=== PATIENT | female | born 2005 | race Caucasian/White ===

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

== ENCOUNTER 2023-11-08 14:42 | Outpatient (REF) | payer OTHER, SELFPAY ==
[2023-11-10 13:35] LABS: Chlamydia Result Negative (Negative); GC Result Negative (Negative)
[2023-11-12 09:22] LABS: Specimen Description URINE
== END 2023-11-08 14:43 | disposition home or self-care (01) ==
LOC: LBN 14:42
PROVIDERS: PCP Nurse Practitioner Pediatrics; Referring Provider Nurse Practitioner Pediatrics; Visit Provider Nurse Practitioner Pediatrics
DX: Z11.3 Encounter for screening for infections with a predominantly sexual mode of transmission (principal)
CPT/HCPCS: 87491; 87591

== ENCOUNTER 2023-11-08 16:52 | Outpatient (CLI) | payer OTHER, SELFPAY ==
[2023-11-08 15:04] LABS: Abs Immature Grans 0.01 10^3/uL (0.0-0.06); Absolute Basophil Count 0.05 10^3/uL (0.0-0.2); Absolute Eosinophil Count 0.22 10^3/uL (0.0-0.7); Absolute Lymphocyte Count 1.76 10^3/uL (1.2-3.4); Absolute Monocyte Count 0.26 10^3/uL (0.1-0.8); Absolute Neutrophil Count 2.75 10^3/uL (1.2-6.7); Eosinophils % 4.4 %; HGB 13.5 g/dL (11.2-15.7); Immature Grans % 0.2 %; Lymphocytes % 34.9 %; MCH 29.2 pg (27.0-33.0); MCHC 33.8 % (32.0-36.0); MCV 86 fL (80-95); MPV 9.6 fL (8.0-11.0); Monocytes % 5.1 %; Neutrophils % 54.4 %; Platelet Count 197 10^3/uL (130-400); RBC 4.63 10^6/uL (3.93-5.22); RDW 12.3 % (11.7-14.6); RDW-SD 38.9 fL; WBC 5.05 10^3/uL (4.4-10.8)
[2023-11-08 15:18] LABS: INR 1.2 (0.9-1.1); Prothrombin Time 12.3 sec (9.1-11.1)
[2023-11-08 16:17] LABS: ALT 29 U/L (14-59); AST 21 U/L (15-37); Albumin 4.3 g/dL (3.4-5.0); Alkaline Phosphatase 49 U/L (46-116); Anion Gap 9.5 mmol/L (3-11); BUN 13 mg/dL (7-18); Bilirubin, Total 0.4 mg/dL (0.2-1.0); CO2 28.5 mmol/L (21.0-32.0); CREATININE 0.7 mg/dL (0.55-1.02); Calcium 9.6 mg/dL (8.5-10.1); Chloride 104 mmol/L (98-107); Ferritin 22 ng/mL (8-252); Glucose 87 mg/dL (74-106); Potassium 3.8 mmol/L (3.5-5.1); Sodium 142 mmol/L (136-145); TSH (W/Ref FT4) 0.99 uIU/mL (0.36-3.74); Total Protein 7.8 g/dL (6.4-8.2)
== END 2023-11-08 16:53 | disposition home or self-care (01) ==
LOC: LBO 16:53
PROVIDERS: PCP Nurse Practitioner Pediatrics; Visit Provider Nurse Practitioner Pediatrics
DX: R58 Hemorrhage, not elsewhere classified; D64.9 Anemia, unspecified
CPT/HCPCS: 36415; 80053; 82728; 84443; 85025; 85610; 85730